=== PATIENT | female | born 1970 | race African-American/Black ===

== ENCOUNTER 2024-04-10 22:05 | Emergency (ER) | payer SELFPAY ==
[~2024-04-10] VITALS: Ht 180.3 cm; Wt 127.0 kg
[2024-04-10 22:13] VITALS: BP 162/79; PULSE 63; RESP 18; TEMP 98; O2SAT 99
[2024-04-10] MEDS: DEXAMETHASONE 4MG/ML 1ML VIAL IM ONE (23:37)
[2024-04-11] MEDS ORDERED: AMOX-494 MT (01:51)
== END 2024-04-11 00:59 | disposition home or self-care (01) ==
LOC: ER 22:05
DX: J02.9 Acute pharyngitis, unspecified (principal); R50.9 Fever, unspecified; E11.9 Type 2 diabetes mellitus without complications; Z98.51 Tubal ligation status
CPT/HCPCS: 99283; 87430; 96372; J1100